=== PATIENT | male | born 1970 | race Caucasian/White ===

== ENCOUNTER 2018-07-12 14:22 | Emergency (ER) | payer BC, SELFPAY ==
[2018-07-12] VITALS (39 sets, daily range): BP systolic 38–91; BP diastolic 23–68; PULSE 50–153; RESP 15–27; TEMP 36.5; O2SAT 91–100
--- NOTE | 2018-07-12 15:22 | W.ED.GENAD ---
Discharge Plan Discharge Details Chief Complaint: Cellulitis Primary Care Provider: [facility] ED Provider: Moni Frye Home Meds and New Rx's Prescriptions: No Action No Known Home Meds RF: 0 Discharge Data Discharge Date/Time-TO BE ENTERED AT DEPARTURE: 07/12/18 18:30 Medical Decision Making MDM Narrative Medical decision making narrative: Alina Majano is a 47-year-old man without history of major medical problems presenting to the emergency department with 6 weeks of bilateral lower extremity edema and general malaise. On exam patient has significant peripheral edema lower extremities and cool mottled skin with low blood pressure. He is alert and conversing normally, walking about the emergency department without issue. Concern for thyroid versus adrenal disease versus CHF versus other metabolic/late derangement versus sepsis/infection versus other. Plan for EKG, chest x-ray, screening labs, IV fluids, dexamethasone, broad-spectrum antibiotics. Some improvement in blood pressure after IV fluids, however MAP <65. We will start Levophed. I discussed transfer with [facility], who is not accepting any patients whatsoever at this time. I discussed transfer for patient with [facility], Doctor Donell is accepting physician, plan for transfer by helicopter. [facility] requests no central line at this time, run Levophed through peripheral IV, hold vancomycin given no clear source of infection and patient has not been in the healthcare system recently. Continue cefepime. Chest x-ray shows somewhat globular heart, bedside ultrasound performed and shows small pericardial effusion without tamponade physiology. He reports that he feels significantly better on reassessment. MAP now at 65. Patient with multiple lab abnormalities, hyponatremia, BNP greater than 35,000, elevated lactate. Plan to continue judicious IV fluids for transport given apparent cardiogenic shock. Medical Records Medical records reviewed: Yes I reviewed the patient's medical records. Imaging Data Radiologic Study: Radiologist's impression: PORTABLE AP CHEST: The lungs are free of infiltrate. There is no evidence of a pneumothorax or pleural effusion. Allowing for the projection, the heart is within normal limits in size. SUMMARY: There is no evidence of acute cardiopulmonary disease. Lab Data Lab results reviewed: Yes I reviewed the patient's lab results. Laboratory Tests Range/Units 07/12/18 07/12/18 07/12/18 15:50 15:50 15:50 WBC (4.4-10.8) k/cumm 14.36 H RBC (4.50-6.00) m/cumm 5.76 Hgb (13.5-17.5) g/dL 19.2 H* Hct (40.0-50.0) % 55.0 H MCV (80-95) fL 95.5 H MCH (27.0-33.0) pg 33.3 H MCHC (32.0-36.0) g/dL 34.9 RDW (11.8-14.1) % 12.8 Plt Count (130-400) x1000/uL 101 L MPV (8.0-11.0) fL 12.5 H Immature Gran % 0.3 Neutrophils % 88.4 Lymphocytes % 5.9 Monocytes % 5.3 Eosinophils % 0.0 Basophils % 0.1 Absolute Neutrophils (1.2-6.7) k/cumm 12.69 H Absolute Lymphocytes (1.2-3.4) k/cumm 0.85 L Absolute Monocytes (0.11-0.7) k/cumm 0.76 H Absolute Eosinophils (0.0-0.7) k/cumm 0.00 Absolute Basophils (0.0-0.2) k/cumm 0.01 Sodium (136-145) mmol/L 120 L* Potassium (3.5-5.1) mmol/L 5.1 Chloride (98-107) mmol/L 86 L Carbon Dioxide (21.0-32.0) mmol/L 18.5 L Anion Gap (3-11) mmol/L 15.5 H BUN (7-18) mg/dL 43 H Creatinine (0.70-1.30) mg/dL 2.26 H Estimated GFR/1.73 m2 (mL/min/1.73m2) 31.12 Glucose (70-100) mg/dL 86 Lactate (0.6-1.4) mmol/L Calcium (8.5-10.1) mg/dL 8.9 Total Bilirubin (0.2-1.0) mg/dL 3.2 H AST (15-37) U/L 95 H ALT (12-78) U/L 110 H Alkaline Phosphatase (46-116) U/L 66 Troponin I (0.00-0.06) ng/mL 0.25 H NT-Pro-B Natriuret Pep ( - 299) pg/mL > 49692 H Total Protein (6.4-8.2) g/dL 6.0 L Albumin (3.4-5.0) g/dL 3.0 L TSH (0.358-3.74) uIU/mL 17.15 H Free T4 (0.76-1.46) ng/dL 0.74 L Cortisol ug/dL Range/Units 07/12/18 07/12/18 07/12/18 16:25 16:25 16:25 WBC (4.4-10.8) k/cumm RBC (4.50-6.00) m/cumm Hgb (13.5-17.5) g/dL Hct (40.0-50.0) % MCV (80-95) fL MCH (27.0-33.0) pg MCHC (32.0-36.0) g/dL RDW (11.8-14.1) % Plt Count (130-400) x1000/uL MPV (8.0-11.0) fL Immature Gran % Neutrophils % Lymphocytes % Monocytes % Eosinophils % Basophils % Absolute Neutrophils (1.2-6.7) k/cumm Absolute Lymphocytes (1.2-3.4) k/cumm Absolute Monocytes (0.11-0.7) k/cumm Absolute Eosinophils (0.0-0.7) k/cumm Absolute Basophils (0.0-0.2) k/cumm Sodium (136-145) mmol/L Potassium (3.5-5.1) mmol/L Chloride (98-107) mmol/L Carbon Dioxide (21.0-32.0) mmol/L Anion Gap (3-11) mmol/L BUN (7-18) mg/dL Creatinine (0.70-1.30) mg/dL Estimated GFR/1.73 m2 (mL/min/1.73m2) Glucose (70-100) mg/dL Lactate (0.6-1.4) mmol/L 7.5 H Cancelled Calcium (8.5-10.1) mg/dL Total Bilirubin (0.2-1.0) mg/dL AST (15-37) U/L ALT (12-78) U/L Alkaline Phosphatase (46-116) U/L Troponin I (0.00-0.06) ng/mL NT-Pro-B Natriuret Pep ( - 299) pg/mL Total Protein (6.4-8.2) g/dL Albumin (3.4-5.0) g/dL TSH (0.358-3.74) uIU/mL Free T4 (0.76-1.46) ng/dL Cortisol ug/dL 107 Range/Units 07/12/18 16:28 WBC (4.4-10.8) k/cumm RBC (4.50-6.00) m/cumm Hgb (13.5-17.5) g/dL Hct (40.0-50.0) % MCV (80-95) fL MCH (27.0-33.0) pg MCHC (32.0-36.0) g/dL RDW (11.8-14.1) % Plt Count (130-400) x1000/uL MPV (8.0-11.0) fL Immature Gran % Neutrophils % Lymphocytes % Monocytes % Eosinophils % Basophils % Absolute Neutrophils (1.2-6.7) k/cumm Absolute Lymphocytes (1.2-3.4) k/cumm Absolute Monocytes (0.11-0.7) k/cumm Absolute Eosinophils (0.0-0.7) k/cumm Absolute Basophils (0.0-0.2) k/cumm Sodium (136-145) mmol/L Potassium (3.5-5.1) mmol/L Chloride (98-107) mmol/L Carbon Dioxide (21.0-32.0) mmol/L Anion Gap (3-11) mmol/L BUN (7-18) mg/dL Creatinine (0.70-1.30) mg/dL Estimated GFR/1.73 m2 (mL/min/1.73m2) Glucose (70-100) mg/dL Lactate (0.6-1.4) mmol/L Calcium (8.5-10.1) mg/dL Total Bilirubin (0.2-1.0) mg/dL AST (15-37) U/L ALT (12-78) U/L Alkaline Phosphatase (46-116) U/L Troponin I (0.00-0.06) ng/mL Cancelled NT-Pro-B Natriuret Pep ( - 299) pg/mL Total Protein (6.4-8.2) g/dL Albumin (3.4-5.0) g/dL TSH (0.358-3.74) uIU/mL Free T4 (0.76-1.46) ng/dL Cortisol ug/dL ECG Data Attestation: I personally reviewed and interpreted this ECG (s) as follows: Interpretation: EKG shows afib at 153 with right axis, non-specific ST changes, no STEMI EKG#2 ST at 115 with right axis, non-specific ST changes, no STEMI HPI - General Adult General Mode of arrival: ambulatory. Date/Time Provider Initiated Documentation: 07/12/18 14:49. Limitations to Documentation: no limitations. Information obtained by: patient, RN notes reviewed and old records reviewed. HPI Narrative: Ric Majano is a 39-year-old man with a reported history of major medical problems renting to the emergency department with generalized malaise and swelling of his legs. Patient reports that over the past 6 weeks he has noticed that his legs have become progressively more swollen. He reports that he has also fell very tired and just generally unwell. He reports that he has been eating and drinking normally, and he denies any pain. He denies fever, cough, nausea/vomiting/diarrhea/constipation, focal weakness, numbness/tingling. He does report some rash on his lower legs where the swelling is present, and some mild shortness of breath that he does not usually notice. No orthopnea. Patient reports that 6 weeks ago he was running on the beach. He denies ever having similar symptoms in the past. He reports that he has not been to a physician or sought any medical care in years. He denies alcohol or drug use. Related Data Home Medications Medication Instructions Recorded Confirmed Unknown [No Known Home Meds] 07/12/18 07/12/18 Allergies Allergy/AdvReac Type Severity Reaction Status Date / Time chocolate Allergy Uncoded 07/12/18 14:43 General Stated Complaint: Cellulitis MICHAEL: 2 Review of Systems Review of Systems Constitutional: denies fevers Eyes: denies eye pain ENT: denies facial pain, dental pain, sore throat Cardiovascular: denies chest pain, reports edema Respiratory: denies cough, reports shortness of breath GI: denies abdominal pain, vomiting, diarrhea : denies flank pain MSK: denies back pain, neck pain, arthralgias, myalgias Skin: Reports rash lower legs Neuro: denies headaches, lightheadedness, weakness PFSH Social History Smoking/Tobacco Use Status: Never Exam Narrative Exam Narrative: Constitutional: Appears ill, pleasant, conversing normally HENT: head atraumatic, normocephalic normal inspection, mucous membranes moist Eyes: conjunctiva normal, sclera normal, pupils 3mm b/l Neck: no stridor, normal ROM, trachea midline Chest: normal inspection Resp: normal work of breathing, LCTAB Cardio: normal rate, normal rhythm, no murmur appreciated GI: abdomen soft, non-tender, non-distended Back: normal inspection, no rash Skin: warm, dry, mottling of the face, hands, and abdomen. Mild blistering with clear fluid over bilateral lower legs without erythema Neuro: alert, not altered, grossly non-focal, normal tone Ext: 3+ pitting edema bilaterally into thighs Psych: normal mood, normal affect, normal behavior Course Vital Signs Temperature 36.5 C 07/12/18 14:38 Pulse 50 L 07/12/18 14:38 Respiratory Rate 16 07/12/18 14:38 Blood Pressure 68/54 L 07/12/18 14:38 Pulse Oximetry 100 07/12/18 14:38 Temperature 36.5 C 07/12/18 14:38 Pulse 50 L 07/12/18 14:38 Respiratory Rate 16 07/12/18 14:38 Blood Pressure 68/54 L 07/12/18 14:38 Pulse Oximetry 100 07/12/18 14:38 Critical Care Time Critical Care Time: Yes Total Critical Care Time: 45 Attestation: I have spent greater than 45 minutes of critical care time with this critically ill patient.
[2018-07-12] MEDS: Normal Saline Flush 10 ML SYR IVP (15:50)
[2018-07-12 16:08] LABS: Abs Immature Grans 0.05 k/cumm (0.0-0.09); Absolute Basophil Count 0.01 k/cumm (0.0-0.2); Absolute Lymphocyte Count 0.85 k/cumm (1.2-3.4); Absolute Monocyte Count 0.76 k/cumm (0.11-0.7); Absolute Neutrophil Count 12.69 k/cumm (1.2-6.7); Basophils % 0.1; Immature Grans % 0.3; Lymphocytes % 5.9; Mean Corp. HGB Concentration 34.9 g/dL (32.0-36.0); Mean Corpuscular Hemoglobin 33.3 pg (27.0-33.0); Mean Corpuscular Volume 95.5 fL (80-95); Mean Platelet Volume 12.5 fL (8.0-11.0); Monocytes % 5.3; Neutrophils % 88.4; Platelet Count 101 x1000/uL (130-400); RBC 5.76 m/cumm (4.50-6.00); RBC Distribution Width 12.8 % (11.8-14.1); White Blood Cell Count 14.36 k/cumm (4.4-10.8)
[2018-07-12 16:12] LABS: HGB 19.2 g/dL (13.5-17.5)
[2018-07-12] MEDS: Dexamethasone 10 MG/ML VIAL (16:17)
[2018-07-12] MEDS: Normal Saline 250 ML IV (16:23)
[2018-07-12 16:26] LABS: ALT 110 U/L (12-78); AST 95 U/L (15-37); Alkaline Phosphatase 66 U/L (46-116); Anion Gap 15.5 mmol/L (3-11); BUN 43 mg/dL (7-18); Bilirubin, Total 3.2 mg/dL (0.2-1.0); CO2 18.5 mmol/L (21.0-32.0); CREATININE 2.26 mg/dL (0.70-1.30); Calcium 8.9 mg/dL (8.5-10.1); Chloride 86 mmol/L (98-107); Estimated GFR 31.12 (mL/min/1.73m2); Glucose 86 mg/dL (70-100); Potassium 5.1 mmol/L (3.5-5.1); TSH (W/Ref FT4) 17.15 uIU/mL (0.358-3.74)
[2018-07-12 16:32] LABS: Troponin I 0.25 ng/mL (0.00-0.06)
[2018-07-12 16:33] LABS: Sodium 120 mmol/L (136-145)
[2018-07-12 16:36] LABS: Lactate-non-spesis 7.5 mmol/L (0.6-1.4)
--- NOTE | 2018-07-12 16:52 | DI.VRAD_ITS ---
EXAM: XR Chest, 1 View EXAM DATE/TIME: 07/12/2018 4:35 PM CLINICAL HISTORY: 47 years old, male; Pain; Chest pain; On breathing TECHNIQUE: XR of the chest, 1 view. COMPARISON: No relevant prior studies available. FINDINGS: Lungs: Unremarkable. No consolidation. Pleural space: Unremarkable. No pleural effusion. No pneumothorax. Heart/Mediastinum: Unremarkable. No cardiomegaly. Bones/joints: Unremarkable for patient's age. IMPRESSION: No acute findings. Dictated and Authenticated by: Hernando Cuevas MD. Ordering:CHAVA ZARCO MD
[2018-07-12] MEDS: fentaNYL 100 MCG/2 ML VIAL (17:00)
[2018-07-12] MEDS: CEFEPIME 2 GM in Normal Saline 100 ML IVPB (17:11)
[2018-07-12 17:12] LABS: FREE T4 0.74 ng/dL (0.76-1.46); NT-proBNP > 35000 pg/mL
[2018-07-12] MEDS: Normal Saline 1,000 ML 150 ML IV (17:47)
[2018-07-12] MEDS: Normal Saline 500 ML IV (17:49)
--- NOTE | 2018-07-19 17:56 | ED.GENADUL_ITS ---
Discharge Plan Discharge Details Chief Complaint: Cellulitis Primary Care Provider: [facility] ED Provider: Moni Frye Home Meds and New Rx's Prescriptions: No Action No Known Home Meds RF: 0 Discharge Data Discharge Date/Time-TO BE ENTERED AT DEPARTURE: 07/12/18 18:30 Medical Decision Making MDM Narrative Medical decision making narrative: Alina Majano is a 47-year-old man without history of major medical problems presenting to the emergency department with 6 weeks of bilateral lower extremity edema and general malaise. On exam patient has significant peripheral edema lower extremities and cool mottled skin with low blood pressure. He is alert and conversing normally, walking about the emergency department without issue. Concern for thyroid versus adrenal disease versus CHF versus other metabolic/late derangement versus sepsis/infection versus other. Plan for EKG, chest x-ray, screening labs, IV fluids, dexamethasone, broad-spectrum antibiotics. Some improvement in blood pressure after IV fluids, however MAP <65. We will start Levophed. I discussed transfer with [facility], who is not accepting any patients whatsoever at this time. I discussed transfer for patient with [facility], Doctor Donell is accepting physician, plan for transfer by helicopter. [facility] requests no central line at this time, run Levophed through peripheral IV, hold vancomycin given no clear source of infection and patient has not been in the healthcare system recently. Continue cefepime. Chest x-ray shows somewhat globular heart, bedside ultrasound performed and shows small pericardial effusion without tamponade physiology. He reports that he feels significantly better on reassessment. MAP now at 65. Patient with multiple lab abnormalities, hyponatremia, BNP greater than 35,000, elevated lactate. Plan to continue judicious IV fluids for transport given apparent cardiogenic shock. Medical Records Medical records reviewed: Yes I reviewed the patient's medical records. Imaging Data Radiologic Study: Radiologist's impression: PORTABLE AP CHEST: The lungs are free of infiltrate. There is no evidence of a pneumothorax or pleural effusion. Allowing for the projection, the heart is within normal limits in size. SUMMARY: There is no evidence of acute cardiopulmonary disease. Lab Data Lab results reviewed: Yes I reviewed the patient's lab results. Laboratory Tests Range/Units 07/12/18 07/12/18 07/12/18 15:50 15:50 15:50 WBC (4.4-10.8) k/cumm 14.36 H RBC (4.50-6.00) m/cumm 5.76 Hgb (13.5-17.5) g/dL 19.2 H* Hct (40.0-50.0) % 55.0 H MCV (80-95) fL 95.5 H MCH (27.0-33.0) pg 33.3 H MCHC (32.0-36.0) g/dL 34.9 RDW (11.8-14.1) % 12.8 Plt Count (130-400) x1000/uL 101 L MPV (8.0-11.0) fL 12.5 H Immature Gran % 0.3 Neutrophils % 88.4 Lymphocytes % 5.9 Monocytes % 5.3 Eosinophils % 0.0 Basophils % 0.1 Absolute Neutrophils (1.2-6.7) k/cumm 12.69 H Absolute Lymphocytes (1.2-3.4) k/cumm 0.85 L Absolute Monocytes (0.11-0.7) k/cumm 0.76 H Absolute Eosinophils (0.0-0.7) k/cumm 0.00 Absolute Basophils (0.0-0.2) k/cumm 0.01 Sodium (136-145) mmol/L 120 L* Potassium (3.5-5.1) mmol/L 5.1 Chloride (98-107) mmol/L 86 L Carbon Dioxide (21.0-32.0) mmol/L 18.5 L Anion Gap (3-11) mmol/L 15.5 H BUN (7-18) mg/dL 43 H Creatinine (0.70-1.30) mg/dL 2.26 H Estimated GFR/1.73 m2 (mL/min/1.73m2) 31.12 Glucose (70-100) mg/dL 86 Lactate (0.6-1.4) mmol/L Calcium (8.5-10.1) mg/dL 8.9 Total Bilirubin (0.2-1.0) mg/dL 3.2 H AST (15-37) U/L 95 H ALT (12-78) U/L 110 H Alkaline Phosphatase (46-116) U/L 66 Troponin I (0.00-0.06) ng/mL 0.25 H NT-Pro-B Natriuret Pep ( - 299) pg/mL > 65658 H Total Protein (6.4-8.2) g/dL 6.0 L Albumin (3.4-5.0) g/dL 3.0 L TSH (0.358-3.74) uIU/mL 17.15 H Free T4 (0.76-1.46) ng/dL 0.74 L Cortisol ug/dL Range/Units 07/12/18 07/12/18 07/12/18 16:25 16:25 16:25 WBC (4.4-10.8) k/cumm RBC (4.50-6.00) m/cumm Hgb (13.5-17.5) g/dL Hct (40.0-50.0) % MCV (80-95) fL MCH (27.0-33.0) pg MCHC (32.0-36.0) g/dL RDW (11.8-14.1) % Plt Count (130-400) x1000/uL MPV (8.0-11.0) fL Immature Gran % Neutrophils % Lymphocytes % Monocytes % Eosinophils % Basophils % Absolute Neutrophils (1.2-6.7) k/cumm Absolute Lymphocytes (1.2-3.4) k/cumm Absolute Monocytes (0.11-0.7) k/cumm Absolute Eosinophils (0.0-0.7) k/cumm Absolute Basophils (0.0-0.2) k/cumm Sodium (136-145) mmol/L Potassium (3.5-5.1) mmol/L Chloride (98-107) mmol/L Carbon Dioxide (21.0-32.0) mmol/L Anion Gap (3-11) mmol/L BUN (7-18) mg/dL Creatinine (0.70-1.30) mg/dL Estimated GFR/1.73 m2 (mL/min/1.73m2) Glucose (70-100) mg/dL Lactate (0.6-1.4) mmol/L 7.5 H Cancelled Calcium (8.5-10.1) mg/dL Total Bilirubin (0.2-1.0) mg/dL AST (15-37) U/L ALT (12-78) U/L Alkaline Phosphatase (46-116) U/L Troponin I (0.00-0.06) ng/mL NT-Pro-B Natriuret Pep ( - 299) pg/mL Total Protein (6.4-8.2) g/dL Albumin (3.4-5.0) g/dL TSH (0.358-3.74) uIU/mL Free T4 (0.76-1.46) ng/dL Cortisol ug/dL 107 Range/Units 07/12/18 16:28 WBC (4.4-10.8) k/cumm RBC (4.50-6.00) m/cumm Hgb (13.5-17.5) g/dL Hct (40.0-50.0) % MCV (80-95) fL MCH (27.0-33.0) pg MCHC (32.0-36.0) g/dL RDW (11.8-14.1) % Plt Count (130-400) x1000/uL MPV (8.0-11.0) fL Immature Gran % Neutrophils % Lymphocytes % Monocytes % Eosinophils % Basophils % Absolute Neutrophils (1.2-6.7) k/cumm Absolute Lymphocytes (1.2-3.4) k/cumm Absolute Monocytes (0.11-0.7) k/cumm Absolute Eosinophils (0.0-0.7) k/cumm Absolute Basophils (0.0-0.2) k/cumm Sodium (136-145) mmol/L Potassium (3.5-5.1) mmol/L Chloride (98-107) mmol/L Carbon Dioxide (21.0-32.0) mmol/L Anion Gap (3-11) mmol/L BUN (7-18) mg/dL Creatinine (0.70-1.30) mg/dL Estimated GFR/1.73 m2 (mL/min/1.73m2) Glucose (70-100) mg/dL Lactate (0.6-1.4) mmol/L Calcium (8.5-10.1) mg/dL Total Bilirubin (0.2-1.0) mg/dL AST (15-37) U/L ALT (12-78) U/L Alkaline Phosphatase (46-116) U/L Troponin I (0.00-0.06) ng/mL Cancelled NT-Pro-B Natriuret Pep ( - 299) pg/mL Total Protein (6.4-8.2) g/dL Albumin (3.4-5.0) g/dL TSH (0.358-3.74) uIU/mL Free T4 (0.76-1.46) ng/dL Cortisol ug/dL ECG Data Attestation: I personally reviewed and interpreted this ECG (s) as follows: Interpretation: EKG shows afib at 153 with right axis, non-specific ST changes, no STEMI EKG#2 ST at 115 with right axis, non-specific ST changes, no STEMI HPI - General Adult General Mode of arrival: ambulatory . Date/Time Provider Initiated Documentation: 07/12/18 14:49 . Limitations to Documentation: no limitations . Information obtained by: patient, RN notes reviewed and old records reviewed . HPI Narrative: Ric Majano is a 39-year-old man with a reported history of major medical problems renting to the emergency department with generalized malaise and swelling of his legs. Patient reports that over the past 6 weeks he has noticed that his legs have become progressively more swollen. He reports that he has also fell very tired and just generally unwell. He reports that he has been eating and drinking normally, and he denies any pain. He denies fever, cough, nausea/vomiting/diarrhea/constipation, focal weakness, numbness/tingling. He does report some rash on his lower legs where the swelling is present, and some mild shortness of breath that he does not usually notice. No orthopnea. Patient reports that 6 weeks ago he was running on the beach. He denies ever having similar symptoms in the past. He reports that he has not been to a physician or sought any medical care in years. He denies alcohol or drug use. Related Data Home Medications Medication Instructions Recorded Confirmed Unknown [No Known Home Meds] 07/12/18 07/12/18 Allergies Allergy/AdvReac Type Severity Reaction Status Date / Time chocolate Allergy Uncoded 07/12/18 14:43 General Stated Complaint: Cellulitis MICHAEL: 2 Review of Systems Review of Systems Constitutional: denies fevers Eyes: denies eye pain ENT: denies facial pain, dental pain, sore throat Cardiovascular: denies chest pain, reports edema Respiratory: denies cough, reports shortness of breath GI: denies abdominal pain, vomiting, diarrhea : denies flank pain MSK: denies back pain, neck pain, arthralgias, myalgias Skin: Reports rash lower legs Neuro: denies headaches, lightheadedness, weakness PFSH Social History Smoking/Tobacco Use Status: Never Exam Narrative Exam Narrative: Constitutional: Appears ill, pleasant, conversing normally HENT: head atraumatic, normocephalic normal inspection, mucous membranes moist Eyes: conjunctiva normal, sclera normal, pupils 3mm b/l Neck: no stridor, normal ROM, trachea midline Chest: normal inspection Resp: normal work of breathing, LCTAB Cardio: normal rate, normal rhythm, no murmur appreciated GI: abdomen soft, non-tender, non-distended Back: normal inspection, no rash Skin: warm, dry, mottling of the face, hands, and abdomen. Mild blistering with clear fluid over bilateral lower legs without erythema Neuro: alert, not altered, grossly non-focal, normal tone Ext: 3+ pitting edema bilaterally into thighs Psych: normal mood, normal affect, normal behavior Course Vital Signs Temperature 36.5 C 07/12/18 14:38 Pulse 50 L 07/12/18 14:38 Respiratory Rate 16 07/12/18 14:38 Blood Pressure 68/54 L 07/12/18 14:38 Pulse Oximetry 100 07/12/18 14:38 Temperature 36.5 C 07/12/18 14:38 Pulse 50 L 07/12/18 14:38 Respiratory Rate 16 07/12/18 14:38 Blood Pressure 68/54 L 07/12/18 14:38 Pulse Oximetry 100 07/12/18 14:38 Critical Care Time Critical Care Time: Yes Total Critical Care Time: 45 Attestation: I have spent greater than 45 minutes of critical care time with this critically ill patient.
== END 2018-07-12 18:30 ==
LOC: ER 15:16
PROVIDERS: Emergency Provider Student in an Organized Health Care Education/Training Program
DX: I30.9 Acute pericarditis, unspecified (principal); E87.1 Hypo-osmolality and hyponatremia
CPT/HCPCS: 36415; 80053; 82533; 87040; 93005; 96361; 96365; 96366; 96368; 96375; 99291; 71045; 83605; 83880; 84439; 84443; 84484; 85025; 93010; J1100; J3010

== ENCOUNTER 2018-11-29 12:29 | Outpatient (CLI) | payer BC, SELFPAY ==
[2018-11-29 14:36] LABS: Abs Immature Grans 0.01 k/cumm (0.0-0.09); Absolute Basophil Count 0.02 k/cumm (0.0-0.2); Absolute Eosinophil Count 0.33 k/cumm (0.0-0.7); Absolute Lymphocyte Count 1.48 k/cumm (1.2-3.4); Absolute Monocyte Count 0.49 k/cumm (0.11-0.7); Absolute Neutrophil Count 2.23 k/cumm (1.2-6.7); Basophils % 0.4; Eosinophils % 7.2; HCT 35.1 % (40.0-50.0); HGB 11.9 g/dL (13.5-17.5); Immature Grans % 0.2; Lymphocytes % 32.5; Mean Corp. HGB Concentration 33.9 g/dL (32.0-36.0); Mean Corpuscular Hemoglobin 31.3 pg (27.0-33.0); Mean Corpuscular Volume 92.4 fL (80-95); Mean Platelet Volume 9.9 fL (8.0-11.0); Monocytes % 10.7; Platelet Count 190 x1000/uL (130-400); RBC Distribution Width 12.6 % (11.8-14.1); White Blood Cell Count 4.56 k/cumm (4.4-10.8)
[2018-11-29 14:51] LABS: INR 1.4 (0.9-1.1); Prothrombin Time 14.3 sec (9.3-11.0)
[2018-11-29 15:40] LABS: ALT 24 U/L (12-78); AST 23 U/L (15-37); Albumin 3.9 g/dL (3.4-5.0); Alkaline Phosphatase 67 U/L (46-116); Anion Gap 9.1 mmol/L (3-11); BUN 29 mg/dL (7-18); Bilirubin, Total 0.3 mg/dL (0.2-1.0); CO2 26.9 mmol/L (21.0-32.0); Calcium 9.2 mg/dL (8.5-10.1); Chloride 104 mmol/L (98-107); Estimated GFR 46.17 (mL/min/1.73m2); Glucose 89 mg/dL (70-100); Sodium 140 mmol/L (136-145); Total Protein 6.9 g/dL (6.4-8.2)
== END 2018-11-29 12:49 ==
PROVIDERS: PCP Internal Medicine; Visit Provider Internal Medicine
DX: K70.31 Alcoholic cirrhosis of liver with ascites (principal); I48.91 Unspecified atrial fibrillation; Z79.01 Long term (current) use of anticoagulants
CPT/HCPCS: 36415; 80053; 85025; 85610

== ENCOUNTER 2018-12-20 13:49 | Outpatient (CLI) | payer BC, SELFPAY ==
[2018-12-20 14:20] LABS: Abs Immature Grans 0.01 k/cumm (0.0-0.09); Absolute Basophil Count 0.01 k/cumm (0.0-0.2); Absolute Eosinophil Count 0.28 k/cumm (0.0-0.7); Absolute Lymphocyte Count 1.28 k/cumm (1.2-3.4); Absolute Monocyte Count 0.38 k/cumm (0.11-0.7); Absolute Neutrophil Count 2.59 k/cumm (1.2-6.7); Basophils % 0.2; Eosinophils % 6.2; HCT 36.2 % (40.0-50.0); HGB 12.5 g/dL (13.5-17.5); Immature Grans % 0.2; Lymphocytes % 28.1; Mean Corp. HGB Concentration 34.5 g/dL (32.0-36.0); Mean Corpuscular Hemoglobin 31.7 pg (27.0-33.0); Mean Corpuscular Volume 91.9 fL (80-95); Mean Platelet Volume 9.8 fL (8.0-11.0); Monocytes % 8.4; Neutrophils % 56.9; Platelet Count 197 x1000/uL (130-400); RBC 3.94 m/cumm (4.50-6.00); RBC Distribution Width 12.3 % (11.8-14.1); White Blood Cell Count 4.55 k/cumm (4.4-10.8)
[2018-12-20 14:45] LABS: INR 1.2 (0.9-1.1); Prothrombin Time 12.1 sec (9.3-11.0)
[2018-12-20 14:59] LABS: ALT 24 U/L (12-78); AST 21 U/L (15-37); Albumin 3.9 g/dL (3.4-5.0); Alkaline Phosphatase 70 U/L (46-116); Anion Gap 8.9 mmol/L (3-11); BUN 30 mg/dL (7-18); Bilirubin, Total 0.2 mg/dL (0.2-1.0); CO2 26.1 mmol/L (21.0-32.0); CREATININE 1.52 mg/dL (0.70-1.30); Calcium 8.4 mg/dL (8.5-10.1); Chloride 105 mmol/L (98-107); Estimated GFR 48.99 (mL/min/1.73m2); Glucose 96 mg/dL (70-100); Potassium 3.7 mmol/L (3.5-5.1); Sodium 140 mmol/L (136-145)
== END 2018-12-20 14:09 ==
PROVIDERS: PCP Internal Medicine; Visit Provider Internal Medicine
DX: I48.91 Unspecified atrial fibrillation (principal); Z79.01 Long term (current) use of anticoagulants; K70.31 Alcoholic cirrhosis of liver with ascites
CPT/HCPCS: 36415; 80053; 85025; 85610

== ENCOUNTER 2019-02-01 01:48 | Outpatient (CLI) | payer BC, SELFPAY ==
[2019-02-01 10:31] LABS: Absolute Basophil Count 0.02 k/cumm (0.0-0.2); Absolute Eosinophil Count 0.13 k/cumm (0.0-0.7); Absolute Lymphocyte Count 1.18 k/cumm (1.2-3.4); Absolute Monocyte Count 0.32 k/cumm (0.11-0.7); Absolute Neutrophil Count 1.95 k/cumm (1.2-6.7); Basophils % 0.6; Eosinophils % 3.6; HCT 38.7 % (40.0-50.0); HGB 13.1 g/dL (13.5-17.5); Lymphocytes % 32.8; Mean Corp. HGB Concentration 33.9 g/dL (32.0-36.0); Mean Corpuscular Hemoglobin 30.5 pg (27.0-33.0); Mean Corpuscular Volume 90.2 fL (80-95); Mean Platelet Volume 10.4 fL (8.0-11.0); Monocytes % 8.9; Neutrophils % 54.1; Platelet Count 178 x1000/uL (130-400); RBC 4.29 m/cumm (4.50-6.00); RBC Distribution Width 11.9 % (11.8-14.1)
[2019-02-01 10:40] LABS: INR 1.7 (0.9-1.1); Prothrombin Time 17.1 sec (9.3-11.0)
[2019-02-01 12:07] LABS: ALT 42 U/L (12-78); AST 32 U/L (15-37); Albumin 4.1 g/dL (3.4-5.0); Alkaline Phosphatase 72 U/L (46-116); Anion Gap 7.8 mmol/L (3-11); BUN 26 mg/dL (7-18); Bilirubin, Total 0.3 mg/dL (0.2-1.0); CO2 28.2 mmol/L (21.0-32.0); CREATININE 1.56 mg/dL (0.70-1.30); Chloride 103 mmol/L (98-107); Estimated GFR 47.54 (mL/min/1.73m2); Glucose 93 mg/dL (70-100); Potassium 4.3 mmol/L (3.5-5.1); Sodium 139 mmol/L (136-145); Total Protein 6.6 g/dL (6.4-8.2)
== END 2019-02-01 02:08 ==
PROVIDERS: PCP Internal Medicine; Visit Provider Internal Medicine
DX: K70.31 Alcoholic cirrhosis of liver with ascites (principal); I48.91 Unspecified atrial fibrillation; Z79.01 Long term (current) use of anticoagulants
CPT/HCPCS: 36415; 80053; 85025; 85610

== ENCOUNTER 2019-03-07 01:02 | Outpatient (CLI) | payer BC, SELFPAY ==
[2019-03-07 10:49] LABS: Abs Immature Grans 0.01 k/cumm (0.0-0.09); Absolute Basophil Count 0.02 k/cumm (0.0-0.2); Absolute Eosinophil Count 0.15 k/cumm (0.0-0.7); Absolute Lymphocyte Count 1.07 k/cumm (1.2-3.4); Absolute Monocyte Count 0.34 k/cumm (0.11-0.7); Absolute Neutrophil Count 1.97 k/cumm (1.2-6.7); Basophils % 0.6; Eosinophils % 4.2; HCT 38.9 % (40.0-50.0); HGB 13.3 g/dL (13.5-17.5); Immature Grans % 0.3; Lymphocytes % 30.1; Mean Corp. HGB Concentration 34.2 g/dL (32.0-36.0); Mean Corpuscular Hemoglobin 30.6 pg (27.0-33.0); Mean Corpuscular Volume 89.6 fL (80-95); Mean Platelet Volume 10.4 fL (8.0-11.0); Monocytes % 9.6; Neutrophils % 55.2; Platelet Count 170 x1000/uL (130-400); RBC 4.34 m/cumm (4.50-6.00); RBC Distribution Width 12.2 % (11.8-14.1); White Blood Cell Count 3.56 k/cumm (4.4-10.8)
[2019-03-07 11:13] LABS: INR 1.9 (0.9-1.1)
[2019-03-07 11:56] LABS: ALT 24 U/L (12-78); AST 21 U/L (15-37); Albumin 3.9 g/dL (3.4-5.0); Alkaline Phosphatase 78 U/L (46-116); Anion Gap 8.8 mmol/L (3-11); BUN 26 mg/dL (7-18); Bilirubin, Total 0.3 mg/dL (0.2-1.0); CO2 27.2 mmol/L (21.0-32.0); CREATININE 1.53 mg/dL (0.70-1.30); Chloride 102 mmol/L (98-107); Estimated GFR 48.62 (mL/min/1.73m2); Glucose 95 mg/dL (70-100); Potassium 4.2 mmol/L (3.5-5.1); Sodium 138 mmol/L (136-145); Total Protein 6.5 g/dL (6.4-8.2)
== END 2019-03-07 01:22 ==
PROVIDERS: PCP Internal Medicine; Visit Provider Internal Medicine
DX: K70.31 Alcoholic cirrhosis of liver with ascites (principal); I48.91 Unspecified atrial fibrillation; Z79.01 Long term (current) use of anticoagulants
CPT/HCPCS: 36415; 80053; 85025; 85610

== ENCOUNTER 2019-03-30 12:46 | Outpatient (CLI) | payer BC, SELFPAY ==
[2019-03-30 15:25] LABS: Absolute Basophil Count 0.02 k/cumm (0.0-0.2); Absolute Eosinophil Count 0.16 k/cumm (0.0-0.7); Absolute Lymphocyte Count 1.54 k/cumm (1.2-3.4); Absolute Monocyte Count 0.36 k/cumm (0.11-0.7); Absolute Neutrophil Count 2.26 k/cumm (1.2-6.7); Basophils % 0.5; Eosinophils % 3.7; HCT 38.9 % (40.0-50.0); HGB 13.5 g/dL (13.5-17.5); Lymphocytes % 35.5; Mean Corp. HGB Concentration 34.7 g/dL (32.0-36.0); Mean Corpuscular Volume 89.4 fL (80-95); Mean Platelet Volume 10.3 fL (8.0-11.0); Monocytes % 8.3; Platelet Count 165 x1000/uL (130-400); RBC 4.35 m/cumm (4.50-6.00); RBC Distribution Width 12.2 % (11.8-14.1); White Blood Cell Count 4.34 k/cumm (4.4-10.8)
[2019-03-30 15:46] LABS: INR 1.3 (0.9-1.1); Prothrombin Time 12.8 sec (9.3-11.0)
[2019-03-30 16:18] LABS: ALT 28 U/L (12-78); AST 23 U/L (15-37); Alkaline Phosphatase 77 U/L (46-116); Anion Gap 9.6 mmol/L (3-11); BUN 27 mg/dL (7-18); Bilirubin, Total 0.3 mg/dL (0.2-1.0); CO2 25.4 mmol/L (21.0-32.0); CREATININE 1.42 mg/dL (0.70-1.30); Chloride 103 mmol/L (98-107); Estimated GFR 52.99 (mL/min/1.73m2); Glucose 91 mg/dL (70-100); Potassium 3.8 mmol/L (3.5-5.1); Sodium 138 mmol/L (136-145); Total Protein 6.7 g/dL (6.4-8.2)
== END 2019-03-30 13:06 ==
PROVIDERS: PCP Internal Medicine; Visit Provider Internal Medicine
DX: K70.31 Alcoholic cirrhosis of liver with ascites (principal); Z79.01 Long term (current) use of anticoagulants; I48.91 Unspecified atrial fibrillation
CPT/HCPCS: 36415; 80053; 85025; 85610

== ENCOUNTER 2019-04-29 14:30 | Outpatient (CLI) | payer OTHER, SELFPAY ==
[2019-04-29 14:55] LABS: Absolute Basophil Count 0.01 k/cumm (0.0-0.2); Absolute Eosinophil Count 0.15 k/cumm (0.0-0.7); Absolute Lymphocyte Count 1.16 k/cumm (1.2-3.4); Absolute Monocyte Count 0.29 k/cumm (0.11-0.7); Absolute Neutrophil Count 2.06 k/cumm (1.2-6.7); Basophils % 0.3; Eosinophils % 4.1; HCT 38.2 % (40.0-50.0); HGB 12.9 g/dL (13.5-17.5); Lymphocytes % 31.6; Mean Corp. HGB Concentration 33.8 g/dL (32.0-36.0); Mean Corpuscular Hemoglobin 30.4 pg (27.0-33.0); Mean Corpuscular Volume 90.1 fL (80-95); Mean Platelet Volume 10.5 fL (8.0-11.0); Monocytes % 7.9; Neutrophils % 56.1; Platelet Count 165 x1000/uL (130-400); RBC 4.24 m/cumm (4.50-6.00); RBC Distribution Width 12.2 % (11.8-14.1); White Blood Cell Count 3.67 k/cumm (4.4-10.8)
[2019-04-29 15:16] LABS: INR 1.2 (0.9-1.1); Prothrombin Time 11.8 sec (9.3-11.0)
[2019-04-29 15:44] LABS: ALT 38 U/L (12-78); AST 32 U/L (15-37); Albumin 3.8 g/dL (3.4-5.0); Alkaline Phosphatase 67 U/L (46-116); BUN 26 mg/dL (7-18); Bilirubin, Total 0.4 mg/dL (0.2-1.0); CO2 25.3 mmol/L (21.0-32.0); CREATININE 1.43 mg/dL (0.70-1.30); Calcium 8.8 mg/dL (8.5-10.1); Estimated GFR 52.56 (mL/min/1.73m2); Glucose 111 mg/dL (70-100); Total Protein 6.4 g/dL (6.4-8.2)
[2019-04-29 17:01] LABS: Anion Gap 9.7 mmol/L (3-11); Chloride 103 mmol/L (98-107); Potassium 4.1 mmol/L (3.5-5.1); Sodium 138 mmol/L (136-145)
== END 2019-04-29 14:50 ==
PROVIDERS: PCP Internal Medicine; Visit Provider Internal Medicine
DX: K70.31 Alcoholic cirrhosis of liver with ascites (principal); I48.91 Unspecified atrial fibrillation; Z79.01 Long term (current) use of anticoagulants
CPT/HCPCS: 36415; 80053; 85025; 85610

== ENCOUNTER 2019-06-02 15:15 | Outpatient (CLI) | payer OTHER, SELFPAY ==
[2019-06-02 15:48] LABS: Abs Immature Grans 0.01 k/cumm (0.0-0.09); Absolute Basophil Count 0.01 k/cumm (0.0-0.2); Absolute Eosinophil Count 0.08 k/cumm (0.0-0.7); Absolute Lymphocyte Count 1.35 k/cumm (1.2-3.4); Absolute Monocyte Count 0.32 k/cumm (0.11-0.7); Absolute Neutrophil Count 2.83 k/cumm (1.2-6.7); Basophils % 0.2; Eosinophils % 1.7; HCT 39.6 % (40.0-50.0); HGB 13.5 g/dL (13.5-17.5); Immature Grans % 0.2; Lymphocytes % 29.3; Mean Corp. HGB Concentration 34.1 g/dL (32.0-36.0); Mean Corpuscular Hemoglobin 31.4 pg (27.0-33.0); Mean Corpuscular Volume 92.1 fL (80-95); Mean Platelet Volume 9.8 fL (8.0-11.0); Neutrophils % 61.6; Platelet Count 177 x1000/uL (130-400); RBC Distribution Width 12.5 % (11.8-14.1)
[2019-06-02 15:49] LABS: INR 1.1 (0.9-1.1); Prothrombin Time 11.1 sec (9.3-11.0)
[2019-06-02 16:36] LABS: ALT 30 U/L (12-78); AST 22 U/L (15-37); Albumin 3.8 g/dL (3.4-5.0); Alkaline Phosphatase 70 U/L (46-116); Anion Gap 12.3 mmol/L (3-11); BUN 26 mg/dL (7-18); Bilirubin, Total 0.5 mg/dL (0.2-1.0); CO2 24.7 mmol/L (21.0-32.0); CREATININE 1.37 mg/dL (0.70-1.30); Calcium 8.5 mg/dL (8.5-10.1); Chloride 104 mmol/L (98-107); Estimated GFR 55.23 (mL/min/1.73m2); Glucose 97 mg/dL (70-100); Potassium 3.7 mmol/L (3.5-5.1); Sodium 141 mmol/L (136-145); Total Protein 6.5 g/dL (6.4-8.2)
== END 2019-06-02 15:35 ==
PROVIDERS: PCP Internal Medicine; Visit Provider Internal Medicine
DX: K70.31 Alcoholic cirrhosis of liver with ascites (principal); I48.91 Unspecified atrial fibrillation; Z79.01 Long term (current) use of anticoagulants
CPT/HCPCS: 36415; 80053; 85025; 85610

== ENCOUNTER 2025-09-26 12:05 | Emergency (ER) | payer OTHER, SELFPAY ==
[2025-09-26 12:09] VITALS: BP 115/69; PULSE 64; RESP 14; TEMP 36.8; O2SAT 98
--- NOTE | 2025-09-26 13:30 | DI.US_ITS ---
Exam(s) US SOFT TISSUE EXTREMITY EXAM: US SOFT TISSUE EXTREMITY CLINICAL HISTORY: s/p cath, saavedra/swelling rgroin, pseudoaneury v abs. TECHNIQUE: Ultrasound was performed using standard protocol. COMPARISON: No exams were available for comparison FINDINGS: Images are submitted for interpretation. There is a complex relatively superficial fluid collection within the subcutaneous layer measuring approximately 2.2 x 0.8 x 2.2 cm and appearing separate from the recently catheterized ipsilateral right common femoral artery. It does not exhibit color flow therein but exhibits some surrounding hyperemia. IMPRESSION: As above. Findings are more consistent with an abscess than a pseudoaneurysm. DATA REPOSITORY:
[2025-09-26] MEDS: Loratidine 10 MG TAB PO (13:46)
[2025-09-26 13:57] LABS: Abs Immature Grans 0.01 10^3/uL (0.0-0.06); HCT 43.1 % (40.0-50.0); HGB 14.8 g/dL (13.5-17.5); Immature Grans % 0.2 %; MCH 31.5 pg (27.0-33.0); MCHC 34.3 % (32.0-36.0); MCV 92 fL (80-95); MPV 9.9 fL (8.0-11.0); Platelet Count 171 10^3/uL (130-400); RBC 4.70 10^6/uL (4.36-5.78); RDW 11.6 % (11.8-14.1); RDW-SD 39.2 fL; WBC 4.42 10^3/uL (4.4-10.8)
[2025-09-26 14:22] LABS: C-Reactive Protein < 0.50 mg/dL (<=0.50)
[2025-09-26 14:23] LABS: ALT 13 U/L (10-49); AST 18 U/L (<34); Albumin 4.2 g/dL (3.2-5.0); Alkaline Phosphatase 65 U/L (46-116); Anion Gap 6.6 mmol/L (3-11); BUN 26 mg/dL (9-23); Bilirubin, Total 0.40 mg/dL (0.2-1.2); CO2 28.4 mmol/L (20.0-31.0); Calcium 9.3 mg/dL (8.3-10.6); Chloride 105 mmol/L (98-107); Glucose 88 mg/dL (74-106); Potassium 4.5 mmol/L (3.5-5.1); Sodium 140 mmol/L (136-145); Total Protein 6.9 g/dL (5.7-8.2)
[2025-09-26 15:31] VITALS: BP 105/65; PULSE 63; RESP 12; O2SAT 100
--- NOTE | 2025-09-28 12:00 | W.ED.GENAD ---
Discharge Plan Disposition Patient Disposition: Home Condition: Stable Discharge Details Clinical Impression: Abscess, Post surgical complication Primary Care Provider: Albert Corcoran ED Provider: Roseanna Qiu Home Meds and New Rx's Prescriptions: New cephalexin 500 mg capsule 500 mg PO QID 10 Days Qty: 40 0RF Continued apixaban 5 mg tablet 5 mg PO BID Discharge Instructions Instructions: Skin Abscess Additional Instructions: warm compresses as frequently as possible take antibiotics as prescribed call your doctor for follow-up/ recheck 48 hours unless significant improvement claritin for drug eruption (suspect this is related to recent surgery) should you develop fever, worsening pain, spreading redness to the groin, difficulty swallowing or shortness of breath associated with the rash you should be reevaluated Stand Alone Forms: Portal Information Referrals: Albert Corcoran [Primary Care Provider] Discharge Data Discharge Date/Time-TO BE ENTERED AT DEPARTURE: 09/26/25 15:33 HPI General Date/Time Provider Initiated Documentation: 09/26/25 13:23. HPI Narrative: This 55-year-old male presents with swelling and redness to his right groin, status post ablation at [facility] performed 6 days ago. He he states the area is tender. He reportedly wrote to his treatment manager who encouraged him to be evaluated in the emergency department and felt like he might need an antibiotic. He denies any fever chills or systemic signs of infection. Related Data Home Medications ?Medication ?Instructions ?Recorded ?Confirmed apixaban 5 mg tablet 5 mg PO BID 09/26/25 09/26/25 cephalexin 500 mg capsule 500 mg PO QID 10 days #40 caps 09/26/25 Previous Rx's ?Medication ?Instructions ?Recorded cephalexin 500 mg capsule 500 mg PO QID 10 days #40 caps 09/26/25 Allergies Allergy/AdvReac Type Severity Reaction Status Date / Time chocolate Allergy Intermediate rash Uncoded 09/26/25 12:21 General Stated Complaint: Cellulitis MICHAEL: 3 Exam Narrative Exam Narrative: 55-year-old male in no acute distress, right groin with swelling and some erythema, approximately an inch of induration no drainage no fluctuance palpable femoral pulse Course Vital Signs Vital signs: Vital Signs Temperature 36.8 C 09/26/25 12:09 Pulse 64 09/26/25 12:09 Respiratory Rate 14 09/26/25 12:09 Blood Pressure 115/69 09/26/25 12:09 Pulse Oximetry 98 09/26/25 12:09 Temperature 36.8 C 09/26/25 12:09 Temperature Source Oral 09/26/25 12:09 Pulse 63 09/26/25 15:31 Respiratory Rate 12 09/26/25 15:31 Blood Pressure 105/65 09/26/25 15:31 Blood Pressure Position Sitting 09/26/25 12:09 Pulse Oximetry 100 09/26/25 15:31 Oxygen Delivery Method Room Air 09/26/25 12:09 Oxygen Flow Rate 0 09/26/25 12:09 Lab/Test Results Lab/Test Results: Laboratory Tests Range/Units 09/26/25 13:45 WBC (4.4-10.8) 10^3/uL 4.42 RBC (4.36-5.78) 10^6/uL 4.70 Hgb (13.5-17.5) g/dL 14.8 Hct (40.0-50.0) % 43.1 MCV (80-95) fL 92 MCH (27.0-33.0) pg 31.5 MCHC (32.0-36.0) % 34.3 RDW (11.8-14.1) % 11.6 L Plt Count (130-400) 10^3/uL 171 MPV (8.0-11.0) fL 9.9 Immature Gran % % 0.2 Neutrophils % % 60.6 Lymphocytes % % 22.2 Monocytes % % 9.0 Eosinophils % % 7.5 Basophils % % 0.5 Nucleated RBC % (0.0-0.3) % 0.0 Absolute Neutrophils (1.2-6.7) 10^3/uL 2.68 Absolute Lymphocytes (1.2-3.4) 10^3/uL 0.98 L Absolute Monocytes (0.1-0.8) 10^3/uL 0.40 Absolute Eosinophils (0.0-0.7) 10^3/uL 0.33 Absolute Basophils (0.0-0.2) 10^3/uL 0.02 Sodium (136-145) mmol/L 140 Potassium (3.5-5.1) mmol/L 4.5 Chloride (98-107) mmol/L 105 Carbon Dioxide (20.0-31.0) mmol/L 28.4 Anion Gap (3-11) mmol/L 6.6 BUN (9-23) mg/dL 26 H Creatinine (0.73-1.18) mg/dL 1.15 Est GFR (CKD-EPI 2020) (mL/min/1.73m2) 65.78 Glucose (74-106) mg/dL 88 Calcium (8.3-10.6) mg/dL 9.3 Total Bilirubin (0.2-1.2) mg/dL 0.40 AST (<34) U/L 18 ALT (10-49) U/L 13 Alkaline Phosphatase (46-116) U/L 65 C-Reactive Protein (<=0.50) mg/dL < 0.50 Total Protein (5.7-8.2) g/dL 6.9 Albumin (3.2-5.0) g/dL 4.2 Medical Decision Making Results: Ultrasound was ordered to exclude a pseudoaneurysm, evidence of a superficial fluid collection possibly a developing abscess per radiology interpretation my review separate from the femoral artery. CBC and CMP do not show evidence of acute abnormality Assessment and plan: Patient would likely abscess without evidence of pseudoaneurysm per radiology interpretation. I spoke with the on-call provider, Paty for cardiology to make them aware regarding a postoperative complication. They asked that we initiate Keflex and they would like patient to follow-up with PCP rather than their clinic reportedly. I relayed this to the patient and he is aware that should this worsen he should be reevaluated in the emergency department immediately, otherwise 48-hour recheck seems reasonable patient will be placed on Keflex warm compresses and discharge in stable condition without signs of systemic illness at this time. PFSH All Active Problems (Updated 09/26/25 @ 15:02 by LUCI Gómez) Post surgical complication (Acute) Abscess (Acute) Social History Smoking/Tobacco Use Status: Never Smoking risk assessment performed?: Yes Drug use: Never Do you feel safe in your relationship?: Yes
== END 2025-09-26 15:33 | disposition home or self-care (01) ==
PROVIDERS: Emergency Provider Physician Assistant; PCP Internal Medicine
DX: L02.91 Cutaneous abscess, unspecified; T81.89XA Other complications of procedures, not elsewhere classified, initial encounter
CPT/HCPCS: 76881; 80053; 99284; 85025; 86140